=== PATIENT | female | born 1945 | race Caucasian/White ===

== ENCOUNTER 2019-11-28 05:10 | Inpatient (IN) | payer MEDICARE ==
[2019-11-28] VITALS (9 sets, daily range): BP systolic 115–163; BP diastolic 46–66
[~2019-11-28] VITALS: Ht 149.9 cm; Wt 62.0 kg
[2019-11-28] MEDS ORDERED: ondansetron/PF 4mg/2ml inj IV ONE (05:30)
[2019-11-28] MEDS ORDERED: normal saline 1000ml 1,000 ML IV ONE (05:35)
[2019-11-28] MEDS ORDERED: ATOR20TA PO (06:02)
[2019-11-28] MEDS ORDERED: MELO-102 PO (06:02)
[2019-11-28] MEDS ORDERED: LOSA50TA3 PO (06:02)
[2019-11-28] MEDS ORDERED: ASPI81TA52 PO (06:02)
[2019-11-28] MEDS ORDERED: METF500T PO (06:02)
[2019-11-28] MEDS ORDERED: AMLO5TAB4 PO (06:02)
[2019-11-28 06:06] LABS: BASOPHILS # (AUTO) 0.1 X10'3 (0-0.2); BASOPHILS % (AUTO) 0.5 % (0-1); EOSINOPHILS # (AUTO) 0.1 X10'3 (0-0.9); EOSINOPHILS % (AUTO) 1.2 % (0-6); HEMATOCRIT 35.5 % (35.0-45.0); HEMOGLOBIN 12.1 g/dl (12.0-16.0); LYMPHOCYTES # (AUTO) 1.4 X10'3 (1.1-4.8); LYMPHOCYTES % (AUTO) 12.5 % (21-51); MEAN CORPUSCULAR HEMOGLOBIN 32.7 PG (27.0-31.0); MEAN CORPUSCULAR HGB CONC 34.2 g/dL (33.0-36.5); MEAN CORPUSCULAR VOLUME 95.8 FL (78-98); MEAN PLATELET VOLUME 8.3 FL (7.4-10.4); MONOCYTES # (AUTO) 0.7 X10'3 (0-0.9); MONOCYTES % (AUTO) 5.9 % (2-12); NEUTROPHILS % (AUTO) 79.9 % (42-75); PLATELET COUNT 299 X10'3 (140-440); RED BLOOD COUNT 3.71 X10'6 (4.20-5.60); RED CELL DISTRIBUTION WIDTH 12.4 % (11.5-14.5); WHITE BLOOD COUNT 11.2 X10'3 (4.5-11.0)
[2019-11-28] MEDS ORDERED: fentaNYL/PF 50MCG/1 ML 2ML syringe IV ONE (06:15)
[2019-11-28 06:17] LABS: ALANINE AMINOTRANSFERASE 26 U/L (12-78); ALBUMIN 3.3 G/DL (3.4-5.0); ALBUMIN/GLOBULIN RATIO 1.1 (1.1-1.5); ALKALINE PHOSPHATASE 68 IU/L (46-116); ANION GAP 9 (8-16); ASPARTATE AMINO TRANSFERASE 16 U/L (10-37); BILIRUBIN,TOTAL 0.5 MG/DL (0.1-1.0); BLOOD UREA NITROGEN 20 MG/DL (7-18); BUN/CREATININE RATIO 18.2 (6.6-38.0); CALCIUM 8.4 MG/DL (8.5-10.1); CHLORIDE 103 MMOL/L (99-107); GLUCOSE 222 MG/DL (70-104); POTASSIUM 3.7 MMOL/L (3.5-5.1); SODIUM 138 MMOL/L (135-145); TOTAL CARBON DIOXIDE 26.3 MMOL/L (24-32); TOTAL PROTEIN 6.4 G/DL (6.4-8.2); eGFR 49 ML/MIN
[2019-11-28 06:20] LABS: PARTIAL THROMBOPLASTIN TIME 24 SECONDS (22-32)
[2019-11-28] MEDS ORDERED: magnesium hydroxide 30ml (MOM) UD suspension PO PRN (07:40)
[2019-11-28] MEDS ORDERED: ondansetron/PF 4mg/2ml inj IV PRN (07:40)
[2019-11-28] MEDS ORDERED: aminophylline 250mg/10ml inj. IV PRN (07:40)
[2019-11-28] MEDS ORDERED: nitroGLYCERIN 0.4mg SUBLingual tab SL PRN ×2 (07:40)
[2019-11-28] MEDS ORDERED: regadenoson 0.4mg/5ml syringe IV ONE (07:40)
[2019-11-28] MEDS ORDERED: mag hydrox/Alum hydrox/simeth 30ml oral suspension PO PRN (07:40)
[2019-11-28] MEDS ORDERED: acetaminophen 325mg tablet PO PRN (07:40)
[2019-11-28] MEDS ORDERED: metoprolol tartrate 1mg/ml inj IV PRN (07:40)
[2019-11-28] MEDS: losartan 50mg tablet PO SCH (09:01)
[2019-11-28] MEDS: HYDROmorphone inj. 0.5 MG/0.5 ML DISP.SYRIN IV PRN ×2 (09:02→19:44)
[2019-11-28] MEDS: aspirin 81mg tablet.DR PO SCH (09:02)
[2019-11-28 09:17] LABS: HEMOGLOBIN A1C 7.3 % (4.5-6.2)
--- NOTE | 2019-11-28 10:00 | NUR ---
Report received from ED RN, Renetta
--- NOTE | 2019-11-28 12:41 | NUR ---
Pt off the floor to sheree scan
--- NOTE | 2019-11-28 18:00 | NUR ---
Paged Dr Cervantes 3x & when spoke to Dr Cervantes x2 throughout shift today requesting accuchecks &/or hyper/hypo glycemia protocol orders. No orders received. Dr Cervantes stated w/the final request, "to not worry about the diabetes, we aren't going to do anything w/it right now."
--- NOTE | 2019-11-28 18:05 | NUR ---
Problems reprioritized. Patient report given, questions answered & plan of care reviewed with Diana Thompson RN & Angela RN.
[2019-11-28 18:35] LABS: LIPASE 979 U/L (73-393)
[2019-11-28] MEDS ORDERED: Meloxicam 15 MG TAB PO SCH (21:00)
[2019-11-28] MEDS ORDERED: atorvastatin 20mg tablet PO SCH (21:00)
[2019-11-29] VITALS: BP 124/53
[2019-11-29] MEDS: HYDROmorphone inj. 0.5 MG/0.5 ML DISP.SYRIN IV PRN (01:20)
[2019-11-29] MEDS ORDERED: diphenhydrAMINE 25mg capsule PO PRN (02:10)
[2019-11-29 04:28] LABS: BASOPHILS % (AUTO) 0.5 % (0-1); EOSINOPHILS # (AUTO) 0.2 X10'3 (0-0.9); EOSINOPHILS % (AUTO) 2.9 % (0-6); HEMATOCRIT 33.5 % (35.0-45.0); HEMOGLOBIN 11.3 g/dl (12.0-16.0); LYMPHOCYTES # (AUTO) 1.6 X10'3 (1.1-4.8); MEAN CORPUSCULAR HEMOGLOBIN 32.7 PG (27.0-31.0); MEAN CORPUSCULAR HGB CONC 33.8 g/dL (33.0-36.5); MEAN CORPUSCULAR VOLUME 96.7 FL (78-98); MEAN PLATELET VOLUME 7.8 FL (7.4-10.4); MONOCYTES # (AUTO) 0.6 X10'3 (0-0.9); MONOCYTES % (AUTO) 8.9 % (2-12); NEUTROPHILS % (AUTO) 62.7 % (42-75); PLATELET COUNT 236 X10'3 (140-440); RED BLOOD COUNT 3.46 X10'6 (4.20-5.60); WHITE BLOOD COUNT 6.4 X10'3 (4.5-11.0)
[2019-11-29 04:50] LABS: ALBUMIN 3.2 G/DL (3.4-5.0); ANION GAP 4 (8-16); BLOOD UREA NITROGEN 17 MG/DL (7-18); BUN/CREATININE RATIO 19.1 (6.6-38.0); CALCIUM 8.4 MG/DL (8.5-10.1); CHLORIDE 105 MMOL/L (99-107); CHOL/HDL RATIO 1.9 (0.00-4.99); CHOLESTEROL 138 MG/DL (0-200); CREATININE 0.89 MG/DL (0.40-0.90); GLUCOSE 129 MG/DL (70-104); HDL CHOLESTEROL 71 MG/DL (35-60); LDL CHOLESTEROL 53 MG/DL (50-100); POTASSIUM 3.8 MMOL/L (3.5-5.1); SODIUM 139 MMOL/L (135-145); TOTAL CARBON DIOXIDE 29.7 MMOL/L (24-32); TRIGLYCERIDES 97 MG/DL (20-135); eGFR 62 ML/MIN
[2019-11-29 06:00] VITALS: BP 129/54
--- NOTE | 2019-11-29 06:40 | NUR ---
Problems reprioritized. Patient report given, questions answered & plan of care reviewed with JILLIAN Robins.
--- NOTE | 2019-11-29 06:48 | NUR ---
Patient in room [id number]. I have received report from Diana Thompson RN and had the opportunity to ask questions and assume patient care.
[2019-11-29] MEDS: losartan 50mg tablet PO SCH (07:55)
[2019-11-29] MEDS: aspirin 81mg tablet.DR PO SCH (07:55)
[2019-11-29 11:00] VITALS: BP 144/51
[2019-11-29] MEDS ORDERED: ONDA4TAB6 PO (11:13)
[2019-11-29] MEDS ORDERED: OXYC-145 PO (11:13)
--- NOTE | 2019-11-29 13:02 | NUR ---
patient seen by DR Cervantes is for discharge. All cares given. DC instructions given to patient with prescription for percocet. 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 Dc home in stable condition to go home via private car.
== END 2019-11-29 12:54 | disposition home or self-care (01) | DRG 440 ==
LOC: ER 05:11 → ED HOLD 07:38 → SUR 3N 10:14 → OBSVTOIN 11-29 09:30
PROVIDERS: ADMIT Internal Medicine; ATTEND Internal Medicine
PROC: 4A02XM4 Measurement of Cardiac Total Activity, External Approach (ICD-10-PCS; principal; 2019-11-28)
PROC: 3E033HZ Introduction of Radioactive Substance into Peripheral Vein, Percutaneous Approach (ICD-10-PCS; 2019-11-28)
DX: K85.90 Acute pancreatitis without necrosis or infection, unspecified (principal); E11.9 Type 2 diabetes mellitus without complications; E78.5 Hyperlipidemia, unspecified; R03.0 Elevated blood-pressure reading, without diagnosis of hypertension; R31.9 Hematuria, unspecified; R19.7 Diarrhea, unspecified; N20.0 Calculus of kidney; I25.2 Old myocardial infarction; Z79.84 Long term (current) use of oral hypoglycemic drugs; Z79.899 Other long term (current) drug therapy; Z83.3 Family history of diabetes mellitus; Z90.710 Acquired absence of both cervix and uterus; Z88.5 Allergy status to narcotic agent; Z88.2 Allergy status to sulfonamides; Z79.82 Long term (current) use of aspirin
CPT/HCPCS: 36415; 71045; 74176; 78452; 80048; 80053; 80061; 83036; 83690; 83880; 84484; 85025; 85610; 85730; 87081; 93005; 93017; 96374; 96375; 96376; 99285; A9500; G0378; J0280; J1170; J2405; J2785; J3010; Q0163